=== PATIENT | female | born 2000 | race Caucasian/White ===

== ENCOUNTER 2020-11-23 15:27 | Emergency (ER) | payer OTHER ==
[~2020-11-23] VITALS: Ht 162.6 cm; Wt 57.9 kg
[2020-11-23] MEDS ORDERED: FLUORESCEIN OPHTH 1 MG STRIP OD ONE (17:10)
[2020-11-23] MEDS ORDERED: CIPR0.3S6 OD (17:32)
[2020-11-23] MEDS ORDERED: CIPROFLOXACIN 0.3% OPHTH SOLN 2.5ML OD ONE (17:35)
[2020-11-23 17:47] VITALS: BP 134/78
== END 2020-11-23 17:51 | disposition home or self-care (01) ==
LOC: M ED 15:27
DX: H10.9 Unspecified conjunctivitis (principal); L72.0 Epidermal cyst; F17.290 Nicotine dependence, other tobacco product, uncomplicated